=== PATIENT | male | born 1970 | race African-American/Black ===

== ENCOUNTER 2018-02-13 08:58 | Emergency (ER) | payer SELFPAY, MEDICARE ==
[2018-02-13] MEDS: ALBUTEROL SULFATE 2.5 MG/3 ML NEBU. INH (09:30)
[2018-02-13] MEDS: IPRATRPIUM/ALBUTEROL 0.5/2.5MG 3 ML NEBU. NEB (09:30)
[2018-02-13 09:45] LABS: ADD MAN DIFF? NO
[2018-02-13] MEDS: ASPIRIN 325 MG TABLET PO (09:48)
[2018-02-13] MEDS: methylPREDNISolone SOD SUCC PF 125 MG/2 ML VIAL. IV (09:48)
[2018-02-13 09:51] LABS: BASO % 0 % (0-3); EOS # 0.6 x10^3/uL (0.0-0.7); EOS % 13 % (0-3); HEMOGLOBIN 15.1 g/dL (13.0-17.5); LYMPH # 1.6 x10^3/uL (1.0-4.8); LYMPH % 34 % (24-48); MEAN CORPUSCULAR HEMOGLOBIN 30 pg (25-35); MEAN CORPUSCULAR HGB CONC 35 g/dL (31-37); MEAN CORPUSCULAR VOLUME 86 fL (79-100); MONO # 0.3 x10^3/uL (0.0-1.1); MONO % 7 % (0-9); NEUT # 2.2 x10^3uL (1.8-7.7); NEUT % 46 % (31-73); PLATELET COUNT 207 x10^3/uL (140-400); RED BLOOD COUNT 4.99 x10^6/uL (4.30-5.70); RED CELL DISTRIBUTION WIDTH 12.9 % (11.5-14.5); WHITE BLOOD COUNT 4.8 x10^3/uL (4.0-11.0)
[2018-02-13 10:02] LABS: ANION GAP 8 (6-14); BLOOD UREA NITROGEN 20 mg/dL (8-26); BUN/CREATININE RATIO 17 (6-20); CALCIUM 8.8 mg/dL (8.5-10.1); CARBON DIOXIDE 26 mmol/L (21-32); CHLORIDE 106 mmol/L (98-107); CREATININE 1.2 mg/dL (0.7-1.3); GFR 65.2; GLUCOSE 116 mg/dL (70-99); POTASSIUM 3.6 mmol/L (3.5-5.1); SODIUM 140 mmol/L (136-145)
[2018-02-13 10:10] LABS: TROPONINI < 0.017 ng/mL (0.000-0.055)
[2018-02-13 10:12] LABS: ALBUMIN 3.9 g/dL (3.4-5.0); ALBUMIN/GLOBULIN RATIO 1.1 (1.0-1.7); ALK PHOS 27 U/L (46-116); ALT (SGPT) 26 U/L (16-63); AST (SGOT) 29 U/L (15-37); TOTAL BILIRUBIN 1.1 mg/dL (0.2-1.0); TOTAL PROTEIN 7.5 g/dL (6.4-8.2)
[2018-02-13 10:13] LABS: NT-PRO BNP 52 pg/mL (0-124)
== END 2018-02-13 10:48 | disposition home or self-care (01) ==
LOC: ER 08:58
DX: J44.1 Chronic obstructive pulmonary disease with (acute) exacerbation (principal); F17.200 Nicotine dependence, unspecified, uncomplicated; F12.10 Cannabis abuse, uncomplicated; Z79.899 Other long term (current) drug therapy
CPT/HCPCS: 36415; 71045; 80053; 83880; 84484; 85025; 93005; 94640; 96374; 99285-25; J2930; J7613; J7620

== ENCOUNTER 2018-02-17 01:04 | Emergency (ER) | payer SELFPAY ==
[2018-02-17 01:28] LABS: ADD MAN DIFF? NO
[2018-02-17 01:31] LABS: BASO # 0.1 x10^3/uL (0.0-0.2); BASO % 1 % (0-3); EOS # 0.8 x10^3/uL (0.0-0.7); EOS % 13 % (0-3); HEMATOCRIT 42.3 % (39.0-53.0); HEMOGLOBIN 14.5 g/dL (13.0-17.5); LYMPH # 1.9 x10^3/uL (1.0-4.8); LYMPH % 31 % (24-48); MEAN CORPUSCULAR HEMOGLOBIN 30 pg (25-35); MEAN CORPUSCULAR HGB CONC 34 g/dL (31-37); MEAN CORPUSCULAR VOLUME 87 fL (79-100); MONO # 0.4 x10^3/uL (0.0-1.1); MONO % 7 % (0-9); NEUT # 3.1 x10^3uL (1.8-7.7); NEUT % 49 % (31-73); PLATELET COUNT 179 x10^3/uL (140-400); RED BLOOD COUNT 4.84 x10^6/uL (4.30-5.70); RED CELL DISTRIBUTION WIDTH 13.1 % (11.5-14.5); WHITE BLOOD COUNT 6.3 x10^3/uL (4.0-11.0)
[2018-02-17] MEDS: IPRATRPIUM/ALBUTEROL 0.5/2.5MG 3 ML NEBU. NEB ×3 (01:31)
[2018-02-17 01:47] LABS: ANION GAP 11 (6-14); BLOOD UREA NITROGEN 12 mg/dL (8-26); BUN/CREATININE RATIO 11 (6-20); CALCIUM 8.9 mg/dL (8.5-10.1); CARBON DIOXIDE 25 mmol/L (21-32); CHLORIDE 105 mmol/L (98-107); CREATININE 1.1 mg/dL (0.7-1.3); GFR 87.2; GLUCOSE 85 mg/dL (70-99); SODIUM 141 mmol/L (136-145)
[2018-02-17 01:52] LABS: ALBUMIN 3.8 g/dL (3.4-5.0); ALBUMIN/GLOBULIN RATIO 1.3 (1.0-1.7); ALK PHOS 32 U/L (46-116); ALT (SGPT) 33 U/L (16-63); AST (SGOT) 48 U/L (15-37); TOTAL BILIRUBIN 0.8 mg/dL (0.2-1.0); TOTAL PROTEIN 6.8 g/dL (6.4-8.2)
[2018-02-17 01:52] LABS: TROPONINI < 0.017 ng/mL (0.000-0.055)
[2018-02-17] MEDS: methylPREDNISolone SOD SUCC PF 125 MG/2 ML VIAL. IV (02:13)
== END 2018-02-17 02:20 | disposition home or self-care (01) ==
LOC: ER 01:04
DX: J44.1 Chronic obstructive pulmonary disease with (acute) exacerbation (principal); F12.10 Cannabis abuse, uncomplicated; J45.909 Unspecified asthma, uncomplicated; F20.9 Schizophrenia, unspecified; F31.9 Bipolar disorder, unspecified
CPT/HCPCS: 36415; 71045; 80053; 84484; 85025; 93005; 94640; 96374; 99285-25; J2930; J7620

== ENCOUNTER 2018-08-25 09:11 | Emergency (ER) | payer SELFPAY ==
[~2018-08-25] VITALS: Ht 182.9 cm; Wt 86.6 kg
[~2018-08-25 09:11] MED LIST: AZIT250T6 PO; PRED50TA PO; PROAIR HFA8.5 GM INH; VENTOLIN HFA18 GM INH
[2018-08-25 09:22] VITALS: BP 125/91
[2018-08-25] MEDS ORDERED: PROAIR HFA8.5 GM INH (09:43)
[2018-08-25] MEDS ORDERED: PRED50TA PO (09:43)
[2018-08-25] MEDS ORDERED: DOXY100T PO (09:43)
--- NOTE | 2018-08-25 09:53 | PHYS DOC ---
Past Medical History Past Medical History: Bipolar, Bronchitis, COPD, Schizophrenia Past Surgical History: No Surgical History Alcohol Use: Rarely Drug Use: Marijuana Adult General Chief Complaint Chief Complaint: Congestion HPI HPI Patient is a 48 year old URI symptoms cough runny nose sinus congestion no real shortness of breath no chest pain occasional sputum production no fever the symptoms for 3 days known COPD he is trying to quit smoking Review of Systems Review of Systems Constitutional: Denies fever or chills [] Eyes: Denies change in visual acuity, redness, or eye pain [] Neurologic: Denies headache, focal weakness or sensory changes [] Endocrine: Denies polyuria or polydipsia [] All other systems were reviewed and found to be within normal limits, except as documented in this note. Allergies Allergies Allergies Coded Allergies Type Severity Reaction Last Updated Verified No Known Drug Allergies 02/13/18 No Physical Exam Physical Exam Constitutional: Well developed, well nourished, no acute distress, non-toxic appearance. [] HENT: Normocephalic, atraumatic, bilateral external ears normal, oropharynx moist, no oral exudates, nose normal. [] Eyes: PERRLA, EOMI, conjunctiva normal, no discharge. [] Neck: Normal range of motion, no tenderness, supple, no stridor. [] Cardiovascular:Heart rate regular rhythm, no murmur [] Lungs & Thorax: Faint bilateral wheezing with no accessory muscle use Abdomen: Bowel sounds normal, soft, no tenderness, no masses, no pulsatile masses. [] Skin: Warm, dry, no erythema, no rash. [] Back: No tenderness, no CVA tenderness. [] Neurologic: Alert and oriented X 3, normal motor function, normal sensory function, no focal deficits noted. [] Psychologic: Affect normal, judgement normal, mood normal. [] Current Patient Data Vital Signs Vital Signs Date Time Temp Pulse Resp B/P (MAP) Pulse Ox O2 Delivery O2 Flow Rate FiO2 08/25/18 09:22 98.0 89 16 125/91 (102) 100 Room Air 98.0 EKG EKG [] Radiology/Procedures Radiology/Procedures [] Course & Med Decision Making Course & Med Decision Making Pertinent Labs and Imaging studies reviewed. (See chart for details) []Sat of 99% on room air patient is breathing comfortably ambulatory into the emergency room I suspect bronchitis with COPD exacerbation there are no asymmetry on lung sounds patient will receive prednisone albuterol doxycycline with return precautions and advised that he is not better in 2-3 days for more workup he is agreeable Arturo Disclaimer Arturo Disclaimer This electronic medical record was generated, in whole or in part, using a voice recognition dictation system. Departure Departure Impression: Primary Impression: COPD exacerbation Disposition: HOME, SELF-CARE Condition: IMPROVED Referrals: NO PCP (PCP) Patient Instructions: Bronchitis Scripts Doxycycline Hyclate (DOXYCYCLINE HYCLATE) 100 Mg Tablet 1 TAB PO BID, #14 TAB Prov: JUNIOR CADENA MD 08/25/18 Prednisone (PREDNISONE) 50 Mg Tablet 1 TAB PO DAILY, #5 TAB Prov: JUNIOR CADENA MD 08/25/18 Albuterol Sulfate (PROAIR HFA INHALER) 8.5 Gm Hfa.aer.ad 1 PUFF INH PRN Q6HRS PRN for SHORTNESS OF BREATH, #1 INHALER 0 Refills Prov: JUNIOR CADENA MD 08/25/18 JUNIOR CADENA MD Aug 25, 2018 09:53
== END 2018-08-25 09:50 | disposition home or self-care (01) ==
LOC: ER 09:11
DX: J44.1 Chronic obstructive pulmonary disease with (acute) exacerbation (principal); F31.9 Bipolar disorder, unspecified; F17.200 Nicotine dependence, unspecified, uncomplicated
CPT/HCPCS: 99283

== ENCOUNTER 2018-09-16 03:48 | Emergency (ER) | payer SELFPAY ==
[~2018-09-16] VITALS: Ht 182.9 cm; Wt 88.5 kg
[~2018-09-16 03:48] MED LIST changes: +DOXY100T PO
[2018-09-16] MEDS ORDERED: PRED20TA PO (04:25)
[2018-09-16] MEDS ORDERED: PROAIR HFA8.5 GM INH (04:25)
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
[2018-09-16] MEDS: DEXAMETHASONE 4 MG TABLET PO ONE (04:40)
[2018-09-16 04:41] VITALS: BP 134/84
--- NOTE | 2018-09-16 08:14 | RAD ---
CHEST PA LATERAL Clinical indications: SHORT OF BREATH, WHEEZING. COMPARISON: February 17, 2018. Findings: Hyperinflation is seen consistent with COPD or air trapping from acute airway disease. No acute lung infiltrate or pleural effusion or pulmonary edema or lung mass or pneumothorax is seen. The heart size, pulmonary vasculature, mediastinum and both laya are unremarkable. The osseous structures appear intact. Impression: Hyperinflation is seen consistent with COPD or air trapping from acute airway disease. No acute lung infiltrate. Electronically signed by: Kayode Kiran MD (09/16/2018 8:11 AM) [facility]
== END 2018-09-16 04:45 | disposition home or self-care (01) ==
LOC: ER 03:48
DX: J40 Bronchitis, not specified as acute or chronic (principal); F31.9 Bipolar disorder, unspecified; J44.9 Chronic obstructive pulmonary disease, unspecified; F20.9 Schizophrenia, unspecified; F17.210 Nicotine dependence, cigarettes, uncomplicated
CPT/HCPCS: 71046; 99284; J8540

== ENCOUNTER 2018-10-05 18:59 | Emergency (ER) | payer SELFPAY ==
[~2018-10-05] VITALS: Ht 182.9 cm; Wt 84.8 kg
[~2018-10-05 18:59] MED LIST changes: +PRED20TA PO
[2018-10-05 19:05] VITALS: BP 145/99
[2018-10-05] MEDS ORDERED: predniSONE 10 MG TABLET PO ONE (19:15)
[2018-10-05] MEDS ORDERED: ALBUTEROL SULFATE 2.5 MG/3 ML NEBU. CONT NEB ONE (19:15)
[2018-10-05] MEDS ORDERED: ALBUTEROL SULFATE 2.5 MG/3 ML NEBU. ONE (19:23)
[2018-10-05] MEDS ORDERED: PROAIR HFA8.5 GM INH (20:26)
--- NOTE | 2018-10-05 20:27 | PHYS DOC ---
Past Medical History Past Medical History: Asthma, Bipolar, Bronchitis, COPD, Schizophrenia Past Surgical History: No Surgical History Alcohol Use: Occasionally Additional Information: "I DRANK 24 OUNCE MALT LIQUIOR 3 HOURS AGO" Drug Use: Marijuana Adult General Chief Complaint Chief Complaint: MEDICATION REFILL HPI HPI Patient is a 48 year old male who presents with shortness breath. The patient was brought in by EMS. He states that he is out of his inhaler. The patient is currently homeless. He does have COPD and is a current smoker. He denies fever. He has had some upper respiratory congestion as well. Review of Systems Review of Systems Constitutional: Denies fever or chills [] Eyes: Denies change in visual acuity, redness, or eye pain [] HENT: Denies nasal congestion or sore throat [] Respiratory: See history of present illness Cardiovascular: No additional information not addressed in HPI [] Neurologic: Denies headache, focal weakness or sensory changes [] Endocrine: Denies polyuria or polydipsia [] All other systems were reviewed and found to be within normal limits, except as documented in this note. Current Medications Current Medications Current Medications Medications (Trade) Dose Ordered Sig/Terence Start Time Stop Time Status Last Admin Dose Admin Albuterol Sulfate (Ventolin Neb Soln) 2.5 mg STK-MED ONCE 10/05/18 19:23 10/05/18 19:24 DC Prednisone (Prednisone) 50 mg 1X ONCE 10/05/18 19:15 10/05/18 19:22 DC 10/05/18 19:44 50 MG Allergies Allergies Allergies Coded Allergies Type Severity Reaction Last Updated Verified No Known Drug Allergies 02/13/18 No Physical Exam Physical Exam Constitutional: Well developed, well nourished, no acute distress, non-toxic appearance. [] Cardiovascular:Heart rate regular rhythm, no murmur [] Lungs & Thorax: Bilateral breath sounds decreased throughout Abdomen: Bowel sounds normal, soft, no tenderness, no masses, no pulsatile masses. [] Skin: Warm, dry, no erythema, no rash. [] Back: No tenderness, no CVA tenderness. [] Extremities: No tenderness, no cyanosis, no clubbing, ROM intact, no edema. [] Neurologic: Alert and oriented X 3, normal motor function, normal sensory function, no focal deficits noted. [] Psychologic: Affect normal, judgement normal, mood normal. [] Current Patient Data Vital Signs Vital Signs Date Time Temp Pulse Resp B/P (MAP) Pulse Ox O2 Delivery O2 Flow Rate FiO2 10/05/18 19:28 Room Air 10/05/18 19:05 98.1 83 20 145/99 (114) 99 98.1 EKG EKG [] Radiology/Procedures Radiology/Procedures [] Course & Med Decision Making Course & Med Decision Making Pertinent Labs and Imaging studies reviewed. (See chart for details) []The patient was given prednisone and an hour-long albuterol nebulizer in the emergency department. This is resolved his symptoms. He will have his albuterol inhaler refilled. Dragon Disclaimer [employer] Disclaimer This electronic medical record was generated, in whole or in part, using a voice recognition dictation system. Departure Departure Impression: Primary Impression: Shortness of breath Additional Impression: Medication refill Disposition: HOME, SELF-CARE Condition: STABLE Referrals: NO PCP (PCP) Patient Instructions: Shortness of Breath Additional Instructions: Use the inhaler as needed for your shortness of breath. Follow-up with your primary care provider in 3 days for recheck or return to the emergency department if worsening. Scripts Albuterol Sulfate (PROAIR HFA INHALER) 8.5 Gm Hfa.aer.ad 1 PUFF INH PRN Q6HRS PRN for SHORTNESS OF BREATH, #1 INHALER 3 Refills Prov: BERTA WARNER APRN 10/05/18 Attending Signature Attending Signature I have reviewed the PA/ARCHERY INSTRUCTOR's note and plan of care. I was available for consultation as needed during the patient's visit in the emergency department. I agree with the clinical impression, plan, and disposition. Problem Qualifiers BERTA WARNER APRN Oct 05, 2018 20:27 BHAGATSHELLIE DO Oct 06, 2018 03:05
== END 2018-10-05 20:33 | disposition home or self-care (01) ==
LOC: ER 18:59
DX: J44.9 Chronic obstructive pulmonary disease, unspecified (principal); F17.200 Nicotine dependence, unspecified, uncomplicated; F31.9 Bipolar disorder, unspecified; F20.9 Schizophrenia, unspecified; Z76.0 Encounter for issue of repeat prescription; Z59.0 Homelessness
CPT/HCPCS: 94644; 99285; J7512; J7613

== ENCOUNTER 2019-03-23 01:30 | Emergency (ER) | payer SELFPAY ==
[~2019-03-23] VITALS: Ht 180.3 cm; Wt 90.7 kg
[~2019-03-23 01:30] MED LIST changes: +ALBU2.5V8 INH; -PROAIR HFA8.5 GM INH
[2019-03-23] MEDS ORDERED: ALBU2.5V8 INH (01:59)
[2019-03-23] MEDS ORDERED: DOXY100C2 PO (01:59)
[2019-03-23] MEDS ORDERED: PRED50TA PO (01:59)
[2019-03-23] MEDS ORDERED: predniSONE 10 MG TABLET PO ONE (02:00)
[2019-03-23] MEDS ORDERED: IPRATRPIUM/ALBUTEROL 0.5/2.5MG 3 ML NEBU. NEB ONE (02:00)
[2019-03-23 02:30] VITALS: BP 127/80
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
--- NOTE | 2019-03-23 08:41 | RAD ---
Examination: PORTABLE CHEST 1V History: SHORT OF BREATH. Comparison/Correlation: 09/16/2018 two-view chest x-ray exam Findings: Portable chest x-ray exam was performed. Heart size and pulmonary vasculature are normal. No infiltrate or pleural effusion. No pneumothorax. Bony structures are unremarkable. Impression: No active disease. Electronically signed by: Cachorro Medina MD (03/23/2019 8:38 AM) [facility]
== END 2019-03-23 03:13 | disposition home or self-care (01) ==
LOC: ER 01:30
DX: J44.1 Chronic obstructive pulmonary disease with (acute) exacerbation (principal); F20.9 Schizophrenia, unspecified; F31.9 Bipolar disorder, unspecified
CPT/HCPCS: 71045; 94640; 99283; J7512; J7620

== ENCOUNTER 2020-03-13 19:55 | Observation (INO) | payer SELFPAY ==
[~2020-03-13] VITALS: Ht 180.3 cm; Wt 79.4 kg
[~2020-03-13 19:55] MED LIST changes: +DOXY100C2 PO
[2020-03-13] MEDS ORDERED: methylPREDNISolone SOD SUCC PF 125 MG/2 ML VIAL. ONE (20:05)
[2020-03-13] MEDS ORDERED: IV NORMAL SALINE 1000ML BAG 1,000 ML IV SCH (20:08)
[2020-03-13] MEDS ORDERED: IPRATRPIUM/ALBUTEROL 0.5/2.5MG 3 ML NEBU. NEB ONE ×2 (20:15)
[2020-03-13] MEDS ORDERED: methylPREDNISolone SOD SUCC PF 125 MG/2 ML VIAL. IV ONE (20:15)
[2020-03-13 20:19] LABS: BASO # 0.1 x10^3/uL (0.0-0.2); BASO % 1 % (0-3); EOS # 0.5 x10^3/uL (0.0-0.7); EOS % 7 % (0-3); HEMATOCRIT 44.9 % (39.0-53.0); HEMOGLOBIN 15.5 g/dL (13.0-17.5); LYMPH # 1.9 x10^3/uL (1.0-4.8); LYMPH % 31 % (24-48); MEAN CORPUSCULAR HEMOGLOBIN 30 pg (25-35); MEAN CORPUSCULAR HGB CONC 35 g/dL (31-37); MEAN CORPUSCULAR VOLUME 87 fL (79-100); MONO # 0.5 x10^3/uL (0.0-1.1); MONO % 8 % (0-9); NEUT # 3.2 x10^3/uL (1.8-7.7); NEUT % 52 % (31-73); PLATELET COUNT 207 x10^3/uL (140-400); RED BLOOD COUNT 5.19 x10^6/uL (4.30-5.70); RED CELL DISTRIBUTION WIDTH 13.1 % (11.5-14.5); WHITE BLOOD COUNT 6.2 x10^3/uL (4.0-11.0)
[2020-03-13 20:27] LABS: CALCIUM 8.8 mg/dL (8.5-10.1); CREATININE 1.1 mg/dL (0.7-1.3); GFR 86.4; POTASSIUM 3.8 mmol/L (3.5-5.1)
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
[2020-03-13 20:33] LABS: ALBUMIN 3.9 g/dL (3.4-5.0); ALBUMIN/GLOBULIN RATIO 1.2 (1.0-1.7); TOTAL BILIRUBIN 0.9 mg/dL (0.2-1.0); TOTAL PROTEIN 7.2 g/dL (6.4-8.2)
--- NOTE | 2020-03-13 20:35 | RAD ---
Exam: Chest one view INDICATION: Short of air TECHNIQUE: Frontal view of the chest Comparisons: 03/23/2019 FINDINGS: The cardiomediastinal silhouette and pulmonary vessels are within normal limits. The lung and pleural spaces are clear. IMPRESSION: No acute cardiopulmonary process. Electronically signed by: Doug Lyons MD (03/13/2020 8:32 PM) [id number]
[2020-03-13 20:47] LABS: BASE EXCESS ABG -2 mmol/L (-3-3); HCO3 ABG 21 mmol/L (21-28); PCO2 ABG 32 mmHg (35-46); PO2 ABG 164 mmHg (75-108); SAT O2 ABG 99 % (92-99)
[2020-03-13] MEDS ORDERED: ONDANSETRON PF 4 MG/2 ML VIAL. IV PRN (21:00)
[2020-03-13] MEDS ORDERED: ACETAMINOPHEN 325 MG TABLET. PO PRN (21:00)
--- NOTE | 2020-03-13 21:00 | NUR ---
Received report from Layla in the Emergency Department. Patient arrived to unit at 2000 hours. Completed assessment of patient at this time. Patient admission also completed at this time. Patient is a poor historian in reference to current medications. Patient recalls taking a blood pressure medication, bi-polar medication and a medication to treat schizophrenia, details are unknown as to amount and doses. Patient admits to using marijuana earlier in the day. Patient some what groggy and talkative with slightly slurred speech. Call light placed in reach for patient, bed in lowest position and locked. Will continue to monitor the patient at this time.
[2020-03-13 22:00] VITALS: BP 131/88
[2020-03-14 03:48] VITALS: BP 116/80
[2020-03-14 04:32] LABS: BASO % 0 % (0-3); EOS % 0 % (0-3); HEMATOCRIT 42.3 % (39.0-53.0); HEMOGLOBIN 14.6 g/dL (13.0-17.5); LYMPH # 0.5 x10^3/uL (1.0-4.8); LYMPH % 14 % (24-48); MEAN CORPUSCULAR HEMOGLOBIN 30 pg (25-35); MEAN CORPUSCULAR HGB CONC 35 g/dL (31-37); MEAN CORPUSCULAR VOLUME 87 fL (79-100); MONO # 0.1 x10^3/uL (0.0-1.1); MONO % 2 % (0-9); NEUT # 2.8 x10^3/uL (1.8-7.7); NEUT % 84 % (31-73); PLATELET COUNT 180 x10^3/uL (140-400); RED BLOOD COUNT 4.88 x10^6/uL (4.30-5.70); RED CELL DISTRIBUTION WIDTH 12.7 % (11.5-14.5); WHITE BLOOD COUNT 3.3 x10^3/uL (4.0-11.0)
[2020-03-14 04:47] LABS: ALBUMIN 3.4 g/dL (3.4-5.0); ALBUMIN/GLOBULIN RATIO 1.1 (1.0-1.7); CALCIUM 8.5 mg/dL (8.5-10.1); CREATININE 0.9 mg/dL (0.7-1.3); POTASSIUM 4.2 mmol/L (3.5-5.1); TOTAL BILIRUBIN 1.1 mg/dL (0.2-1.0); TOTAL PROTEIN 6.4 g/dL (6.4-8.2)
[2020-03-14 07:00] VITALS: BP 123/73
[2020-03-14] MEDS ORDERED: IPRATRPIUM/ALBUTEROL 0.5/2.5MG 3 ML NEBU. NEB SCH (08:00)
[2020-03-14] MEDS ORDERED: ALBUTEROL SULFATE 2.5 MG/3 ML NEBU. INH PRN (08:00)
[2020-03-14] MEDS ORDERED: guaiFENesin DM 200MG/20MG 10 ML SYRUP PO PRN (08:15)
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
[2020-03-14] MEDS ORDERED: AZIT250T6 PO (08:43)
[2020-03-14] MEDS ORDERED: ALBU2.5V8 INH (08:44)
[2020-03-14] MEDS ORDERED: GUAI5SYR PO (08:44)
[2020-03-14] MEDS ORDERED: PRED20TA PO (08:44)
[2020-03-14] MEDS ORDERED: AZITHROMYCIN 250 MG TABLET. PO ONE (09:00)
[2020-03-14] MEDS ORDERED: predniSONE 20 MG TABLET PO SCH (09:00)
--- NOTE | 2020-03-14 10:22 | NUR ---
Discharge instructions given with prescriptions. Verbalized understanding. Declined wheelchair, walked out of unit with paperwork and belongings.
[2020-03-15] MEDS ORDERED: AZITHROMYCIN 250 MG TABLET. PO SCH (09:00)
== END 2020-03-14 10:25 | disposition home or self-care (01) ==
LOC: ER 19:55 → 4 NORTH 21:16
PROVIDERS: ADMIT Internal Medicine; ATTEND Internal Medicine
DX: J44.1 Chronic obstructive pulmonary disease with (acute) exacerbation (principal); I10 Essential (primary) hypertension; J45.909 Unspecified asthma, uncomplicated; F17.200 Nicotine dependence, unspecified, uncomplicated; F20.9 Schizophrenia, unspecified
CPT/HCPCS: 36415; 36600; 71045; 80053; 82805; 83880; 85025; 94640; 96374; 99284; G0378; J2930; J7030; J7512; G0379

== ENCOUNTER 2020-04-06 21:38 | Emergency (ER) | payer SELFPAY ==
[~2020-04-06] VITALS: Ht 180.3 cm; Wt 97.8 kg
[~2020-04-06 21:38] MED LIST changes: +GUAI5SYR PO
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
[2020-04-06] MEDS ORDERED: IV NORMAL SALINE 1000ML BAG 1,000 ML IV SCH (22:00)
[2020-04-06] MEDS ORDERED: IPRATRPIUM/ALBUTEROL 0.5/2.5MG 3 ML NEBU. NEB ONE (22:00)
[2020-04-06 22:01] LABS: BASO # 0.1 x10^3/uL (0.0-0.2); BASO % 1 % (0-3); EOS # 0.5 x10^3/uL (0.0-0.7); EOS % 7 % (0-3); HEMATOCRIT 41.7 % (39.0-53.0); HEMOGLOBIN 14.4 g/dL (13.0-17.5); LYMPH # 1.9 x10^3/uL (1.0-4.8); LYMPH % 26 % (24-48); MEAN CORPUSCULAR HEMOGLOBIN 30 pg (25-35); MEAN CORPUSCULAR HGB CONC 34 g/dL (31-37); MEAN CORPUSCULAR VOLUME 88 fL (79-100); MONO # 0.6 x10^3/uL (0.0-1.1); MONO % 9 % (0-9); NEUT # 4.2 x10^3/uL (1.8-7.7); NEUT % 57 % (31-73); PLATELET COUNT 171 x10^3/uL (140-400); RED BLOOD COUNT 4.75 x10^6/uL (4.30-5.70); WHITE BLOOD COUNT 7.4 x10^3/uL (4.0-11.0)
[2020-04-06 22:10] LABS: CALCIUM 8.6 mg/dL (8.5-10.1); CREATININE 1.2 mg/dL (0.7-1.3); GFR 78.2; POTASSIUM 3.5 mmol/L (3.5-5.1)
[2020-04-06 22:17] LABS: ALBUMIN 3.6 g/dL (3.4-5.0); ALBUMIN/GLOBULIN RATIO 1.4 (1.0-1.7); TOTAL BILIRUBIN 0.7 mg/dL (0.2-1.0); TOTAL PROTEIN 6.1 g/dL (6.4-8.2)
--- NOTE | 2020-04-06 22:35 | RAD ---
EXAM: AP View of the chest DATE: 04/06/2020 9:44 PM INDICATION: Cough, Shortness of breath COMPARISON: No Prior FINDINGS: The heart is not enlarged. Mediastinal and hilar contours are normal. No focal parenchymal airspace opacity. No pleural effusion or pneumothorax. IMPRESSION: 1. No radiographic evidence for acute cardiopulmonary process. Electronically signed by: Hamzah Jay MD (04/06/2020 10:33 PM) CATHERINE
[2020-04-07 00:51] VITALS: BP 124/71
[2020-04-07] MEDS ORDERED: METH4TAB2 PO (01:05)
[2020-04-07] MEDS ORDERED: AZIT250T PO (01:05)
== END 2020-04-07 01:09 | disposition home or self-care (01) ==
LOC: ER 21:38
DX: J44.1 Chronic obstructive pulmonary disease with (acute) exacerbation (principal); J45.901 Unspecified asthma with (acute) exacerbation; R06.02 Shortness of breath; R05 Cough; F17.200 Nicotine dependence, unspecified, uncomplicated; F12.90 Cannabis use, unspecified, uncomplicated; Z98.890 Other specified postprocedural states
CPT/HCPCS: 36415; 71045; 80053; 83880; 84484; 85025; 85379; 94640; 99285; J7030

== ENCOUNTER 2020-04-13 07:30 | Emergency (ER) | payer SELFPAY ==
[~2020-04-13] VITALS: Ht 180.3 cm; Wt 84.0 kg
[~2020-04-13 07:30] MED LIST changes: +AZIT250T PO; +METH4TAB2 PO
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
[2020-04-13] MEDS ORDERED: IPRATRPIUM/ALBUTEROL 0.5/2.5MG 3 ML NEBU. NEB ONE (08:30)
[2020-04-13] MEDS ORDERED: methylPREDNISolone SOD SUCC PF 125 MG/2 ML VIAL. IV ONE (08:30)
[2020-04-13] MEDS ORDERED: ALBU2.5V8 IH (09:15)
[2020-04-13] MEDS ORDERED: PRED50TA PO (09:15)
--- NOTE | 2020-04-13 10:02 | RAD ---
AP portable chest radiograph 04/13/2020 Clinical History: Shortness of breath and wheezing. An AP erect portable digital radiograph of the chest was obtained. Comparison study is dated 04/06/2020. The cardiac silhouette is normal in size. The thoracic aorta is mildly tortuous. No acute pulmonary infiltrate is noted. No pneumothorax or pleural effusion is seen. The osseous structures are unchanged. Impression: No acute abnormality is seen. Electronically signed by: Laureano uZniga MD (04/13/2020 10:00 AM) [id number]
[2020-04-13 10:08] VITALS: BP 131/78
== END 2020-04-13 11:11 | disposition home or self-care (01) ==
LOC: ER 07:30
DX: J44.1 Chronic obstructive pulmonary disease with (acute) exacerbation (principal); R06.02 Shortness of breath; I10 Essential (primary) hypertension; F20.9 Schizophrenia, unspecified; F17.200 Nicotine dependence, unspecified, uncomplicated; F12.90 Cannabis use, unspecified, uncomplicated; Z98.890 Other specified postprocedural states
CPT/HCPCS: 71045; 94640; 99283; J2930

== ENCOUNTER 2020-06-06 08:33 | Emergency (ER) | payer SELFPAY ==
[~2020-06-06] VITALS: Ht 180.3 cm; Wt 85.0 kg
[~2020-06-06 08:33] MED LIST changes: +ALBU2.5V8 IH
[2020-06-06 08:35] VITALS: BP 142/98
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
[2020-06-06] MEDS ORDERED: IPRATRPIUM/ALBUTEROL 0.5/2.5MG 3 ML NEBU. NEB ONE (08:45)
[2020-06-06] MEDS ORDERED: methylPREDNISolone SOD SUCC PF 125 MG/2 ML VIAL. IV ONE (08:45)
[2020-06-06] MEDS ORDERED: PRED20TA PO (11:31)
[2020-06-06] MEDS ORDERED: ALBU2.5V8 INH (11:32)
--- NOTE | 2020-06-07 15:12 | EKG ---
[facility] [address] [place] [address] Test Date: 2020-06-06 Test Time: 08:45:55 Pat Name: ALFRED ARCE Department: Room: Gender: M Manager New Product: : 1970 Requested By: RAOUL CHIANG Order Number: [id number] Reading MD: Measurements Intervals [place] Rate: 94 P: 172 WI: 126 QRS: 90 QRSD: 86 T: 146 QT: 326 QTc: 413 Interpretive Statements SINUS RHYTHM QRS(T) CONTOUR ABNORMALITY CONSIDER HIGH LATERAL INFARCT POSSIBLY ABNORMAL ECG RI6.02 No previous ECG available for comparison
== END 2020-06-06 09:50 | disposition home or self-care (01) ==
LOC: ER 08:33
DX: J44.1 Chronic obstructive pulmonary disease with (acute) exacerbation (principal); I10 Essential (primary) hypertension; F20.9 Schizophrenia, unspecified; F17.200 Nicotine dependence, unspecified, uncomplicated
CPT/HCPCS: 93005; 94640; 99283

== ENCOUNTER 2020-06-30 07:48 | Emergency (ER) | payer SELFPAY ==
[~2020-06-30] VITALS: Ht 180.3 cm; Wt 85.0 kg
--- NOTE | 2020-06-30 08:29 | RAD ---
EXAM: PORTABLE CHEST 1V INDICATION: Reason: soa / Spl. Instructions: / History: . TECHNIQUE: Single view COMPARISON: 04/13/2020 chest x-ray FINDINGS: The heart size is normal. The great vessels appear unremarkable. There is no hilar or mediastinal mass. The lungs are clear. There is no pleural effusion or pneumothorax. There are no significant osseous abnormalities. IMPRESSION: No active cardiopulmonary disease. Electronically signed by: Luca Al MD (06/30/2020 8:26 AM) [id number]
[2020-06-30 08:30] VITALS: BP 139/85
[2020-06-30] MEDS ORDERED: PRED20TA PO (08:34)
[2020-06-30] MEDS ORDERED: ALBU2.5V5 NEB (08:34)
[2020-06-30] MEDS ORDERED: FLUT10.6 IH (08:34)
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
== END 2020-06-30 08:30 | disposition home or self-care (01) ==
LOC: ER 07:48
DX: J44.1 Chronic obstructive pulmonary disease with (acute) exacerbation (principal); I10 Essential (primary) hypertension; F20.9 Schizophrenia, unspecified; Z72.0 Tobacco use
CPT/HCPCS: 71045; 99283

== ENCOUNTER 2021-10-24 22:00 | Emergency (ER) | payer SELFPAY ==
[~2021-10-24] VITALS: Ht 180.3 cm; Wt 87.0 kg
[~2021-10-24 22:00] MED LIST changes: +ALBU2.5V5 NEB; -DOXY100C2 PO; +DOXY100C3 PO; +FLUT10.6 IH
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
[2021-10-24 22:38] LABS: BASO # 0.1 x10^3/uL (0.0-0.2); BASO % 1 % (0-3); EOS % 1 % (0-3); HEMATOCRIT 40.6 % (39.0-53.0); HEMOGLOBIN 13.8 g/dL (13.0-17.5); LYMPH # 1.6 x10^3/uL (1.0-4.8); LYMPH % 20 % (24-48); MEAN CORPUSCULAR HEMOGLOBIN 29 pg (25-35); MEAN CORPUSCULAR HGB CONC 34 g/dL (31-37); MEAN CORPUSCULAR VOLUME 86 fL (79-100); MONO # 0.8 x10^3/uL (0.0-1.1); MONO % 10 % (0-9); NEUT # 5.6 x10^3/uL (1.8-7.7); NEUT % 70 % (31-73); PLATELET COUNT 176 x10^3/uL (140-400); RED BLOOD COUNT 4.74 x10^6/uL (4.30-5.70); RED CELL DISTRIBUTION WIDTH 13.2 % (11.5-14.5); WHITE BLOOD COUNT 8.1 x10^3/uL (4.0-11.0)
[2021-10-24 22:46] LABS: CALCIUM 8.7 mg/dL (8.5-10.1); CREATININE 1.5 mg/dL (0.7-1.3); GFR 60.2; POTASSIUM 3.8 mmol/L (3.5-5.1)
[2021-10-24 22:52] LABS: ALBUMIN 3.7 g/dL (3.4-5.0); ALBUMIN/GLOBULIN RATIO 1.1 (1.0-1.7); TOTAL BILIRUBIN 0.5 mg/dL (0.2-1.0)
[2021-10-24] MEDS ORDERED: IV NORMAL SALINE 1000ML BAG 1,000 ML IV ONE (23:00)
--- NOTE | 2021-10-24 23:01 | RAD ---
XR CHEST 1V History: Short of air, COPD. Comparison: 04/13/2020, 05/31/2020. CT chest 09/20/2020. Technique: AP radiograph of the chest. Findings: The lungs are adequately and symmetrically inflated. There is nodular opacity projecting at the right superior hilum. No pleural effusion or pneumothorax. The cardiomediastinal silhouette and pulmonary vasculature are within normal limits. No acute osseous abnormality. Soft tissues are unremarkable. Impression: 1. Right suprahilar nodular density. Recommend CT chest to evaluate for pulmonary nodule. 2. No significant consolidation. Electronically signed by: Ac Christina MD (10/24/2021 10:59 PM) [facility]
[2021-10-24 23:21] LABS: BASE EXCESS ABG -2 mmol/L (-3-3); HCO3 ABG 22 mmol/L (21-28); PCO2 ABG 35 mmHg (35-46); PO2 ABG 95 mmHg (75-108); SAT O2 ABG 97 % (92-99)
[2021-10-24 23:22] LABS: FIO2 ABG 21
[2021-10-25 00:30] VITALS: BP 160/88
[2021-10-25] MEDS ORDERED: IBUPROFEN 200 MG TABLET. PO ONE (00:30)
--- NOTE | 2021-10-25 02:24 | EKG ---
[facility] [address] [place] [address] Test Date: 2021-10-24 Test Time: 22:09:51 Pat Name: ALFRED ARCE Department: Room: Gender: Border Inspector: : 1970 Requested By: HAILY SHEPARD Order Number: [id number] Reading MD: Measurements Intervals [place] Rate: 107 P: 65 MO: 140 QRS: 83 QRSD: 86 T: 47 QT: 320 QTc: 427 Interpretive Statements SINUS TACHYCARDIA OTHERWISE NORMAL ECG RI6.02 No previous ECG available for comparison
== END 2021-10-25 00:56 | disposition home or self-care (01) ==
LOC: ER 22:00
DX: R07.89 Other chest pain (principal); R06.02 Shortness of breath; J44.9 Chronic obstructive pulmonary disease, unspecified; I10 Essential (primary) hypertension; F20.9 Schizophrenia, unspecified; F17.200 Nicotine dependence, unspecified, uncomplicated
CPT/HCPCS: 36600; 71045; 80053; 82805; 85025; 85379; 93005; 96360; 99285; J7030

== ENCOUNTER 2021-12-10 20:37 | Emergency (ER) | payer SELFPAY ==
[~2021-12-10] VITALS: Ht 180.3 cm; Wt 83.0 kg
[2021-12-10 20:55] VITALS: BP 152/91
[2021-12-10] MEDS ORDERED: methylPREDNISolone SOD SUCC PF 125 MG/2 ML VIAL. IV ONE (21:15)
[2021-12-10] MEDS ORDERED: IPRATRPIUM/ALBUTEROL 0.5/2.5MG 3 ML NEBU. NEB ONE (21:15)
[2021-12-10 21:49] LABS: INFLUENZA A PATIENT NEGATIVE (NEGATIVE); INFLUENZA B PATIENT NEGATIVE (NEGATIVE)
--- NOTE | 2021-12-10 21:56 | RAD ---
XR CHEST 1V CLINICAL INDICATIONS: Shortness of air, cough / Spl. Instructions: / History: COMPARISON: October 24, 2021. Findings: No acute lung infiltrate or pleural effusion or pulmonary edema or lung mass or pneumothora x is seen. The heart size, pulmonary vasculature, mediastinum and both laya are unremarkable. . IMPRESSION: No acute radiographic abnormality is seen. The previously mentioned right suprahilar lung nodule is not evident today. Electronically signed by: Kayode Kiran MD (12/10/2021 9:53 PM) [id number]
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
[2021-12-10 22:25] LABS: BASO # 0.1 x10^3/uL (0.0-0.2); BASO % 1 % (0-3); EOS # 0.5 x10^3/uL (0.0-0.7); EOS % 7 % (0-3); HEMATOCRIT 38.4 % (39.0-53.0); HEMOGLOBIN 13.7 g/dL (13.0-17.5); LYMPH % 27 % (24-48); MEAN CORPUSCULAR HEMOGLOBIN 30 pg (25-35); MEAN CORPUSCULAR HGB CONC 36 g/dL (31-37); MEAN CORPUSCULAR VOLUME 83 fL (79-100); MONO # 0.5 x10^3/uL (0.0-1.1); MONO % 7 % (0-9); NEUT # 4.2 x10^3/uL (1.8-7.7); NEUT % 57 % (31-73); PLATELET COUNT 187 x10^3/uL (140-400); RED BLOOD COUNT 4.65 x10^6/uL (4.30-5.70); RED CELL DISTRIBUTION WIDTH 13.5 % (11.5-14.5); WHITE BLOOD COUNT 7.2 x10^3/uL (4.0-11.0)
[2021-12-10] MEDS ORDERED: METH4TAB2 PO (22:31)
[2021-12-10] MEDS ORDERED: ALBU2.5V8 INH (22:31)
[2021-12-10 22:35] LABS: CALCIUM 8.9 mg/dL (8.5-10.1); CREATININE 1.1 mg/dL (0.7-1.3); GFR 86.1
[2021-12-10 22:43] LABS: ALBUMIN 3.8 g/dL (3.4-5.0); ALBUMIN/GLOBULIN RATIO 0.9 (1.0-1.7); TOTAL BILIRUBIN 0.7 mg/dL (0.2-1.0); TOTAL PROTEIN 8.2 g/dL (6.4-8.2)
--- NOTE | 2021-12-11 06:57 | EKG ---
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
[2021-12-12] MEDS ORDERED: ALBU2.5V8 IH (21:06)
== END 2021-12-10 22:40 | disposition left against medical advice (07) ==
LOC: ER 20:37
DX: J44.1 Chronic obstructive pulmonary disease with (acute) exacerbation (principal); Z20.822 Contact with and (suspected) exposure to COVID-19; I10 Essential (primary) hypertension; F20.9 Schizophrenia, unspecified; F17.200 Nicotine dependence, unspecified, uncomplicated
CPT/HCPCS: 36415; 71045; 80053; 83880; 84484; 85025; 87070; 87880; 93005; 94640; 96374; 99285; J2930; U0003; U0005; 94760